=== PATIENT | male | born 1945 | race Caucasian/White ===

== ENCOUNTER 2017-03-09 05:42 | Day surgery (SDC) | payer MEDICARE ==
[~2017-03-09] VITALS: Ht 185.4 cm; Wt 99.8 kg
[~2017-03-09 05:42] MED LIST: ATENOLOL50 MG PO; ATORVASTATIN CA10 MG PO; AZOPT1 % OU; COQ10200 MG PO; FAMOTIDINE20 M1 PO; FLUOXETINE20 MG PO; LISINOPRIL20 MG PO; NIACIN FLUSH F PO; PILOCARPINE HCL4 % OU; PLAVIX75 MG PO; XALATAN 0.005%2.5 ML OU
[2017-03-09 07:51] VITALS: BP 109/57
== END 2017-03-09 08:35 | disposition home or self-care (01) ==
LOC: ENDO 05:42
PROVIDERS: ATTEND Surgery
PROC: 0DJD8ZZ Inspection of Lower Intestinal Tract, Via Natural or Artificial Opening Endoscopic (ICD-10-PCS; principal; 2017-03-09)
DX: Z12.11 Encounter for screening for malignant neoplasm of colon (principal); K57.30 Diverticulosis of large intestine without perforation or abscess without bleeding; I25.10 Atherosclerotic heart disease of native coronary artery without angina pectoris; Z95.5 Presence of coronary angioplasty implant and graft; Z79.82 Long term (current) use of aspirin; Z79.02 Long term (current) use of antithrombotics/antiplatelets